=== PATIENT | female | born 1955 | race Caucasian/White ===

== ENCOUNTER → 2016-09-06 | Outpatient (CLI) | payer BC ==
[~2016-09-06] MED LIST: LOVA10TA PO
--- NOTE | 2016-09-07 09:22 | Diagnostic Imaging Report ---
DIG JENNIFER BILAT SCREEN W CAD Comparison: 09/01/2015, 08/11/2014 and 07/31/2013 Indication: Screening mammography. Technique: Digital screening mammography was obtained with a computer-aided detection (CAD) system. Findings: There are scattered fibroglandular densities. There is an ovoid isodense mass in the mid to posterior right upper-outer quadrant which is unchanged since 07/31/2013, and is compatible with benign process given long-term stability. No new dominant mass, suspicious microcalcifications or architectural distortion to suggest malignancy. Impression: Stable mammogram without evidence of malignancy. Followup screening mammogram in 12 months is recommended. ACR BI-RADS Category 2: Benign findings. Result letter will be mailed to the patient. Note: At least 10% of breast cancer is not imaged by mammography. Dictated by: Dictated on workstation # [id number]
== END ==
LOC: RAD 09:00
PROVIDERS: ATTEND Family Medicine
DX: Z12.31 Encounter for screening mammogram for malignant neoplasm of breast (principal)